=== PATIENT | male | born 1945 | race Caucasian/White ===

== ENCOUNTER 2016-10-22 22:56 | Emergency (ER) | payer OTHER, MEDICARE ==
[~2016-10-22] VITALS: Ht 175.3 cm; Wt 70.3 kg
[~2016-10-22 22:56] MED LIST: ATIVAN0.5 MG PO; AZITHROMYCIN250 MG PO; HYDROCODONE/ACE1 TA1 PO; HYDROCORTISONE2.51 TOP; LIPO FLAVONOID; LISINOPRIL10 MG PO; PAROXETINE10 MG PO; RANITIDINE HYD150 MG PO
[2016-10-22 23:33] VITALS: BP 156/83
--- NOTE | 2016-10-23 00:49 | ED UPPER/LOWER EXTREMITY COMPL ---
History of Present Illness General Chief Complaint: Lower Extremity Problems Stated Complaint: LEFT HIP PAIN TRAVELS ALL THE WAY DOWN Source: patient Exam Limitations: no limitations Vital Signs & Intake/Output Vital Signs & Intake/Output Vital Signs Date Time Temp Pulse Resp B/P Pulse O2 O2 Flow FiO2 Ox Delivery Rate 10/23 0034 Room Air 10/22 2333 97.6 71 18 156/83 98 Room Air ED Intake and Output 10/23 0000 10/22 1200 Intake Total Output Total Balance Patient 155 lb Weight Allergies Coded Allergies: Penicillins (Severe, LIP SWELLING, HIVES 10/23/16) sulfamethoxazole (From Bactrim) (Severe, LIP SWELLING 10/23/16) trimethoprim (From Bactrim) (Severe, LIP SWELLING 10/23/16) venom-honey bee (Intermediate, REDNESS, SWELLING TO SITE 10/23/16) Reconcile Medications HYDROCODONE/ACETAMINOPHEN (Hydrocodon-Acetaminophen 5-325) 1 TAB TAB 0.5 TAB PO PRN PAIN (Reported) Lisinopril 10 MG TABLET 1 TAB PO DAILY BP (Reported) Lorazepam (Ativan) 0.5 MG TAB 1 TAB PO TID ANXIETY (Reported) Methylprednisolone. (Medrol) 4 MG TAB.DS.PK 1 DP PO AD INFLAMMATION 6 on day 1 then reduce by one tablet daily until gone Oxycodone HCl/Acetaminophen (Percocet 5-325 MG Tablet) 5 MG-325 MG TABLET 1 TAB PO Q4-6 PRN PAIN Ranitidine Hydrochloride 150 MG TAB 1 TAB PO BID GERD (Reported) Triage Note: PT TO ED C/O LEFT HIP PAIN THAT SHOOTS DOWN LEG. SAW DR ROA ON SUNDAY, WAS GIVEN CORTISONE SHOT FOR SCIATIA. IS TAKING 1/2 VICODIN WHICH USED TO HELP, BUT NOW THE PAIN IS SHOOTING DOWN THE LEG PT WALKING WITH LIMP Triage Nurses Notes Reviewed? yes Onset: Abrupt Duration: week(s): (1) Timing: multiple episodes today Severity: severe Pain/Injury Location: Left: Leg. Modifying Factors: Worsens With: other (CHANGE IN POSITION). HPI: 71 year old male presents to the ER with low back pain radiaing to the left leg x 1 week. He had a cortisone injection by his doctor but states that it is not helping. Pain worse with changes in positions. No trauma. No difficulty with bowel or bladder habits. Patient denies any pain relief with vicodin. Past History Travel History Traveled to [place] past 21 day No Medical History Any Pertinent Medical History? 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 No Review of Systems Review of Systems Constitutional: Denies: chills, malaise. EENTM: Reports: no symptoms. Respiratory: Denies: cough, short of breath. Cardiovascular: Denies: chest pain. Gastrointestinal/Abdominal: Denies: abdominal pain. Genitourinary: Reports: no symptoms. Musculoskeletal: Reports: back pain, muscle pain, muscle stiffness. Skin: Reports: no symptoms. Neurological/Psychological: Reports: anxiety. Hematologic/Endocrine: Denies: bruising, bleeding. Immunological: Reports: no symptoms. All Other Systems: Reviewed and Negative Physical Exam Physical Exam General Appearance: alert, awake, anxious, mild distress, thin Head: atraumatic Eyes: Bilateral: PERRL, EOMI. Ears, Nose, Throat: normal pharynx, normal ENT inspection, hearing grossly normal Neck: normal inspection, supple Cardiovascular/Respiratory: regular rate/rhythm Peripheral Pulses: 2+ radial (R), 2+ radial (L) Back: normal inspection Leg Left: normal range of motion, normal inspection Leg Right: normal range of motion, normal inspection Hip Left: normal range of motion, pain, positive SLR at 10 degrees no deformity Hip Right: normal range of motion, normal inspection Knee Left: normal range of motion, normal inspection Knee Right: normal range of motion, normal inspection Neurologic/Tendon: normal sensation, normal motor functions, normal tendon functions Skin: intact, normal color, warm/dry Lymphatic: no anterior cervical brendon Progress Differential Diagnosis: dislocation, fracture, sprain, ARTHRITIS Plan of Care: Orders Procedure Date/time Status XRY-LUMBOSACRAL SPINE 4 VIEWS 10/23 56 Active XRY-HIP 2-3 VIEWS, LEFT 10/23 56 Active Current Medications Sig/Tyson Start time Last Medication Dose Stop Time Status Admin Ketorolac 30 MG ONCE ONE 10/23 99 UNVr Tromethamine 10/23 100 (Toradol) Prednisone 60 MG ONCE ONE 10/23 99 UNVr 10/23 100 Diagnostic Imaging: Viewed by Me: Radiology Read. Discussed w/RAD: Radiology Read. Radiology Impression: PATIENT: BOB BATES JR PRESENT AGE: 71 PATIENT ACCOUNT NO: [id number] : 45 LOCATION: ER ORDERING PHYSICIAN: JEFF CESPEDES MD SERVICE DATE: 10/23/16 EXAM TYPE: RAD - XRY-LUMBOSACRAL SPINE 4 VIEWS EXAMINATION: XR LUMBOSACRAL SPINE CLINICAL INFORMATION: Low back pain. COMPARISON: CT scan abdomen and pelvis 10/05/2015 TECHNIQUE: AP. Lateral. Cone-down AP lateral lumbosacral junction view FINDINGS: Lumbar vertebrae of normal height and alignment. No fracture bone destruction. Degenerative lipping at the anterior endplates of lumbar vertebrae. Lumbar disc height narrowing at L4-L5. Degenerative facet joint arthrosis most pronounced at the lower lumbar spine. IMPRESSION: No acute abnormality. Degenerative disc disease of lumbar spine. DICTATED BY: LONDON SINGH MD DATE/TIME DICTATED:204 GREY WASHER:TAMIR.RANDOLPH DATE/TIME TRANSCRIBED:10/23/16204 CONFIDENTIAL, DO NOT COPY WITHOUT APPROPRIATE AUTHORIZATION. <Electronically signed in Other Vendor System> SIGNED BY: LONDON SINGH MD 10/23/16209, PATIENT: BOB BATES JR PRESENT AGE: 71 PATIENT ACCOUNT NO: [id number] : 45 LOCATION: [facility] ORDERING PHYSICIAN: JEFF CESPEDES MD SERVICE DATE: 10/23/16 EXAM TYPE: RAD - XRY-HIP 2-3 VIEWS, LEFT EXAMINATION: XR HIP, LEFT CLINICAL INFORMATION: Left hip pain radiating to the leg. COMPARISON: None TECHNIQUE: Two views of the left hip. FINDINGS: Bones and soft tissues are normal. No fracture. Alignment is anatomic. Hip joint space is maintained. IMPRESSION: Normal left hip. DICTATED BY: LONDON SINGH MD DATE/ TIME DICTATED:10/23/16206 GREY WASHER:RAD.RANDOLPH DATE/TIME TRANSCRIBED: 10/23/16206 CONFIDENTIAL, DO NOT COPY WITHOUT APPROPRIATE AUTHORIZATION. < Electronically signed in Other Vendor System> SIGNED BY: LONDON SINGH MD 211 Departure Departure Time of Disposition: 214 Disposition: HOME OR SELF CARE Condition: Stable Clinical Impression Primary Impression: Sciatica of left side Referrals: ERIN BOWEN,INOCENCIO Finn (PCP/Family) Additional Instructions: Take the Percocet and Medrol Dosepak as directed. Follow-up with her doctor in the office. Return to the ER for any changing or worsening symptoms. Departure Forms: Customer Survey General Discharge Information Prescriptions: Current Visit Scripts Methylprednisolone. (Medrol) 1 DP PO AD #1 DP 6 on day 1 then reduce by one tablet daily until gone Oxycodone HCl/Acetaminophen (Percocet 5-325 MG Tablet) 1 TAB PO Q4-6 PRN PAIN #10 TAB ED Attending Observation Initial Observation Note: I have seen and personally examined BOB BATES JR on 10/24/16 at 2245. I agree with the current emergency department documentation. The disposition (admission or discharge) is uncertain at this time, he needs a period of observation for the following reason(s): The ED Nurse caring for this patient has been personally informed as to what the patient is being observed for.
--- NOTE | 2016-10-23 02:10 | RADIOLOGY REPORT ---
EXAMINATION: XR LUMBOSACRAL SPINE CLINICAL INFORMATION: Low back pain. COMPARISON: CT scan abdomen and pelvis 10/05/2015 TECHNIQUE: AP. Lateral. Cone-down AP lateral lumbosacral junction view FINDINGS: Lumbar vertebrae of normal height and alignment. No fracture bone destruction. Degenerative lipping at the anterior endplates of lumbar vertebrae. Lumbar disc height narrowing at L4-L5. Degenerative facet joint arthrosis most pronounced at the lower lumbar spine. IMPRESSION: No acute abnormality. Degenerative disc disease of lumbar spine.
--- NOTE | 2016-10-23 02:12 | RADIOLOGY REPORT ---
EXAMINATION: XR HIP, LEFT CLINICAL INFORMATION: Left hip pain radiating to the leg. COMPARISON: None TECHNIQUE: Two views of the left hip. FINDINGS: Bones and soft tissues are normal. No fracture. Alignment is anatomic. Hip joint space is maintained. IMPRESSION: Normal left hip.
[2016-10-23] MEDS ORDERED: MEDROL4 M2 PO (02:14)
[2016-10-23] MEDS ORDERED: PERCOCET 5-3251 EACH PO (02:14)
== END 2016-10-23 02:22 ==
LOC: ERH 22:56
DX: M54.32 Sciatica, left side (principal)
CPT/HCPCS: 72110; 73502-LT; 96372; J1885

== ENCOUNTER → 2017-03-23 | Day surgery (SDC) | payer OTHER ==
[~2017-03-23] VITALS: Ht 172.7 cm; Wt 72.6 kg
[~2017-03-23] MED LIST changes: +LISINOPRIL10 M1 PO; +LORAZEPAM0.5 M1 PO; +MEDROL4 M2 PO; +PAIN RELIEVER500 MG PO; +PERCOCET 5-3251 EACH PO; +RANITIDINE HCL150 MG PO
--- NOTE | 2017-03-23 20:17 | Operative Report ---
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 After successful induction of general anesthesia the inguinal and surrounding areas were clipped prepped and draped in the usual sterile fashion. After injection of local anesthetic at the bottom of the umbilicus off the midline to the left, a 1 1/2 cm curved incision was made with a 15 blade, then deepened through Renato's fascia, sweeping off the rectus sheath. A horizontal 1-1/2 cm incision was made between the fibers, elevating these edges with 0 Vicryl stay sutures. Then retracting the muscle laterally, clearing off the posterior rectus sheath, this space is developed down the midline to the pubis sequentially, with an S retractor, a peanut dissector, then the balloon-camera device, inflating it 30-40 pumps while watching how it opens up the space, keeping the epigastrics up. The balloon is then replaced with a 10 mm Bangura trocar, inserted, shortened, and secured with the stay sutures, gas turned on to 12 not 15 mm. Then two 5 mm trochars are inserted in the midline just below the camera, spaced by approximately 3 cm. Using mostly blunt dissection with peanuts to define the anatomy, first Siddharth's ligament is swept off medially, checking the medial spaces, direct and femoral. There was a direct defect. This defect was reduced and then briefly skipping over the area of the iliac fat pad, we developed the iliopubic tract out laterally to the iliac crest. Then we dissected out the spermatic cord which form a triangle with the vas approaching medially and the main vessels approaching laterally, with the apex at the deep ring. There was some preperitoneal fat up inside in front that was dragged down and out. The cord is also from the underlying iliac fat. Once the hernia sac is from the cord structures down to the base of this "triangle," a Parietex sided mesh with the suture, is marked and stuffed down the camera trocar, then unfurled in a systematic fashion, first with the smaller leaflet passing behind the cord structures, until the flap covers the epigastrics, covering the deep ring, then the larger leaflet is released from the suture, double-covering the smaller one, but also extends laterally out to the iliac crest, medially over Siddharth's ligament, and superiorly towards the camera. There is a third part of the mesh, that covers the iliac fat pad like a skirt. The mesh was adjusted back and forth so that the keyhole is centered around the cord, lays flat and the edges are not curling. A trial run of letting the gas escape a little bit to see how the mesh would lay as the peritoneum comes back down is done, then when we' re satisfied, we let rest of the gas escape, pulling out the instruments and trochars. The fascia is closed with a [id number] 0 Vicryl suture, tying the stay sutures on top. Then we closed the 3 skin incisions with interrupted 4-0 Monocryl, 3 for the umbilical, one each for the smaller ones, followed by Mastisol, Steri-Strips and Band-Aids. Overall estimated blood loss was minimal, lap and sponge counts were correct, wound expectancy was clean, IV fluids crystalloid, complications none, patient tolerated the procedure well, did not significantly landry during extubation and was returned to the recovery room in satisfactory condition.
== END ==
LOC: STS 04:20
DX: K40.90 Unilateral inguinal hernia, without obstruction or gangrene, not specified as recurrent (principal); I10 Essential (primary) hypertension; K21.9 Gastro-esophageal reflux disease without esophagitis; Z87.891 Personal history of nicotine dependence
CPT/HCPCS: 36415; C1781; J1100; J1200; J2250; J2405

== ENCOUNTER 2017-11-30 07:17 | Emergency (ER) | payer OTHER ==
[~2017-11-30] VITALS: Ht 172.7 cm; Wt 68.0 kg
[~2017-11-30 07:17] MED LIST changes: +DELTASONE20 MG PO
[2017-11-30 07:23] VITALS: BP 150/76
--- NOTE | 2017-11-30 07:41 | ED HAND/WRIST INJURY COMPLAINT ---
History of Present Illness General Chief Complaint: General Adult Stated Complaint: CUT ON HAND Source: patient, old records Exam Limitations: no limitations Vital Signs & Intake/Output Vital Signs & Intake/Output Vital Signs Date Time Temp Pulse Resp B/P B/P Pulse O2 O2 Flow FiO2 Mean Ox Delivery Rate 11/30 0723 97.5 71 15 150/76 96 Room Air Room Air Allergies Coded Allergies: Penicillins (Severe, LIP SWELLING, HIVES 11/30/17) sulfamethoxazole (From Bactrim) (Severe, LIP SWELLING 11/30/17) trimethoprim (From Bactrim) (Severe, LIP SWELLING 11/30/17) venom-honey bee (Intermediate, REDNESS, SWELLING TO SITE 11/30/17) Reconcile Medications Acetaminophen (Pain Reliever) 500 MG CAPSULE 2 CAP PO PRN PAIN (Reported) Lisinopril 10 MG TABLET 1 TAB PO DAILY BP (Reported) Lorazepam 0.5 MG TABLET 1 TAB PO BIDP PRN ANXIETY (Reported) Prednisone (Deltasone) 20 MG TABLET 2 TAB PO DAILY RASH Ranitidine (Ranitidine HCl) 150 MG TABLET 1 TAB PO BID GI (Reported) Triage Note: PT TO ED FOR C/C OF ABRASION/?BITE TO L THIRD KNUCKLE AREA. NO ACTIVE BLEEDING. PT TOOK OUT THE TRASH AND ISN'T SURE IF HE GOT BIT OR GOT CUT BY GLASS. ABRASION CLEANED, BACITRACIN AND BANDAID APPLIED. Triage Nurses Notes Reviewed? yes Occurred: just prior to arrival Duration: minute(s):, better, continues in ED Timing: recent history Injury Environment: gas station Severity: mild Pain/Injury Location: Left: Hand. 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 He denies fever chills nausea vomiting diarrhea abdominal pain headache chest pain shortness of breath dysuria rash. He is right hand dominant. Past History Travel History Traveled to [place] past 21 day No Medical History Any Pertinent Medical History? 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 No Review of Systems Review of Systems Constitutional: Reports: no symptoms. EENTM: Reports: no symptoms. Respiratory: Reports: no symptoms. Cardiovascular: Reports: no symptoms. GI: Reports: no symptoms. Genitourinary: Reports: no symptoms. Musculoskeletal: Reports: no symptoms. Skin: Reports: see HPI. Neurological/Psychological: Reports: no symptoms. Hematologic/Endocrine: Reports: no symptoms. Immunologic/Allergic: Reports: no symptoms. All Other Systems: Reviewed and Negative Physical Exam Physical Exam General Appearance: well developed/nourished, alert, awake, anxious, comfortable Head: atraumatic, normal appearance Eyes: Bilateral: normal appearance, PERRL, EOMI. Ears, Nose, Throat: normal pharynx, normal ENT inspection, hearing grossly normal Neck: normal inspection, supple, full range of motion, no midline tenderness Cardiovascular/Respiratory: normal breath sounds, normal peripheral pulses, regular rate/rhythm, no respiratory distress Back: normal inspection Shoulder Left: normal range of motion, normal inspection Shoulder Right: normal range of motion, normal inspection Elbow Left: normal range of motion, normal inspection Elbow Right: normal range of motion, normal inspection Forearm Left: normal range of motion, normal inspection Forearm Right: normal range of motion, normal inspection Wrist Left: normal range of motion, normal inspection Wrist Right: normal range of motion, normal inspection Hand Left: normal range of motion, abrasions Hand Right: normal inspection, normal range of motion Reflexes: 2+: bicep (R), bicep (L). Neurologic/Tendon: normal sensation, normal motor functions, normal tendon functions Skin: intact, normal color, warm/dry Lymphatic: no anterior cervical brendon Progress Differential Diagnosis: cellulitis, contusion Plan of Care: wound care Departure Departure Time of Disposition: 739 Disposition: HOME OR SELF CARE Condition: Stable Clinical Impression Primary Impression: Hand abrasion, non-infected Referrals: Angel BOWEN,Norbert Finn (PCP/Family) Departure Forms: Customer Survey General Discharge Information
== END 2017-11-30 07:41 ==
LOC: ERH 07:17
DX: S60.512A Abrasion of left hand, initial encounter (principal); W45.8XXA Other foreign body or object entering through skin, initial encounter; Y92.29 Other specified public building as the place of occurrence of the external cause; Y93.9 Activity, unspecified
CPT/HCPCS: 99282

== ENCOUNTER 2018-01-16 11:10 | Inpatient (IN) | payer OTHER ==
[~2018-01-16] VITALS: Ht 172.7 cm; Wt 67.6 kg
--- NOTE | 2018-01-16 13:00 | RADIOLOGY REPORT ---
EXAMINATION: XR CHEST CLINICAL INFORMATION: Dyspnea on exertion. Fever. Rule out pneumonia. COMPARISON: Chest radiograph 12/06/2017. TECHNIQUE: 2 views of the chest were obtained. FINDINGS: The lungs are clear without consolidation, edema, or effusion. No pneumothorax. The cardiomediastinal silhouette appears normal. Allowing for mild degenerative changes in the thoracic spine the osseous structures are intact. IMPRESSION: No active disease in the chest.
--- NOTE | 2018-01-16 15:30 | ED INFLUENZA/URI COMPLAINT ---
History of Present Illness General Chief Complaint: Dyspnea (COPD, CHF, Other) Stated Complaint: SOB Source: patient, old records Exam Limitations: no limitations Vital Signs & Intake/Output Vital Signs & Intake/Output ED Intake and Output 01/19 0000 01/18 1200 Intake Total 940 Output Total Balance 940 Intake, IV 600 Intake, Oral 340 Number 1 Bowel Movements Patient 67.585 kg Weight Allergies Coded Allergies: Penicillins (Severe, LIP SWELLING, HIVES 11/30/17) sulfamethoxazole (From Bactrim) (Severe, LIP SWELLING 11/30/17) trimethoprim (From Bactrim) (Severe, LIP SWELLING 11/30/17) venom-honey bee (Intermediate, REDNESS, SWELLING TO SITE 11/30/17) Reconcile Medications Acetaminophen (Pain Reliever) 500 MG CAPSULE 2 CAP PO PRN PAIN (Reported) Aspirin (Aspirin*) 81 MG TAB.CHEW 1 TAB PO DAILY heart (Reported) Atorvastatin Calcium 10 MG TABLET 1 TAB PO DAILY hld (Reported) Hydrocodone/Acetaminophen (Hydrocodon-Acetaminophen 5-325) 5 MG-325 MG TABLET 1 TAB PO DAILY NEEDED PRN pain (Reported) Lisinopril 10 MG TABLET 1 TAB PO DAILY BP (Reported) Lorazepam 0.5 MG TABLET 1 TAB PO BIDP PRN ANXIETY (Reported) Ranitidine (Ranitidine HCl) 150 MG TABLET 1 TAB PO BID GI (Reported) Triage Note: PT TO ER C/C 1 DAY HX OF RIGORS, CHILLS, AND TARANGO. PT STATES T-MAX LAST NIGHT WAS 101.5, TOOK TYLENOL PT ARRIVES AOX3, DENIES CHEST PAIN OR SOB OR COUGH. TYMPANIC TEMP 101.4. MED WITH 975 MG TYLENOL IN TRIAGE. Triage Nurses Notes Reviewed? yes HPI: 72M PMH HTN presents with fever, chills, and abdominal discomfort. He had an episode of rigors last night that lasted several hours. This morning he had rigors again, along with abdominal discomfort and cough. He feels ill, has malaise, and generalized weakness. He denies stiff neck, headache, sore throat, productive cough, SOB, chest pain, diarrhea, dysuria, constipation. Past History Travel History Traveled to [place] past 21 day No Medical History Any Pertinent Medical History? 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 No Review of Systems Review of Systems Constitutional: Reports: no symptoms. EENTM: Reports: no symptoms. Respiratory: Reports: no symptoms. Cardiovascular: Reports: no symptoms. GI: Reports: no symptoms. Genitourinary: Reports: no symptoms. Musculoskeletal: Reports: no symptoms. Skin: Reports: no symptoms. Neurological/Psychological: Reports: no symptoms. Hematologic/Endocrine: Reports: no symptoms. Immunologic/Allergic: Reports: no symptoms. All Other Systems: Reviewed and Negative Physical Exam Physical Exam General Appearance: well developed/nourished, no apparent distress Head: atraumatic, normal appearance Eyes: Bilateral: normal appearance. Ears, Nose, Throat: moist mucous membrane, hearing grossly normal Neck: normal inspection, full range of motion Respiratory: normal breath sounds, no respiratory distress Cardiovascular: regular rate/rhythm Gastrointestinal: soft, non-tender Back: normal inspection, normal range of motion Extremities: normal inspection Neurologic/Psych: awake, alert, oriented x 3, normal mood/affect Skin: intact, normal color, warm/dry Core Measures Sepsis Present: No Sepsis Focused Exam Completed? No Progress Differential Diagnosis: influenza, meningitis, neutropenia, otitis, pneumonia, pharyngitis, sinusitis Plan of Care: Orders Procedure Date/time Status Regular Diet 01/17 B Active ED Holding Orders 01/17 1920 Active Admit to inpatient 01/17 1920 Active Vital Signs 01/17 1920 Active Code Status 01/17 1920 Active BLOOD CULTURE 01/16 1724 Active URINALYSIS 01/16 153 Complete COMPREHENSIVE METABOLIC PANEL 01/16 153 Complete CBC WITHOUT DIFFERENTIAL 01/16 153 Complete EKG 01/16 153 Active Laboratory Tests 01/16/18 1737: Urine Color YEL, Urine Clarity HAZY H, Urine pH 7.5, Ur Specific [place] 1.010, Urine Protein NEG, Urine Ketones NEG, Urine Nitrite NEG, Urine Bilirubin NEG, Urine Urobilinogen 0.2, Ur Leukocyte Esterase NEG, Ur Microscopic SEDIMENT EXAMINED, Micro UA Comment NEGATIVE MICROSCOPIC, Urine Hemoglobin SMALL H, Urine Glucose NEG 01/16/18 1545: Anion Gap 10, Estimated GFR > 60, BUN/Creatinine Ratio 15.7, Glucose 114 H, Calcium 8.4, Total Bilirubin 0.8, AST 45, ALT 50, Alkaline Phosphatase 49, Total Protein 6.1 L, Albumin 3.5, Globulin 2.6, Albumin/Globulin Ratio 1.3, CBC w Diff NO MAN DIFF REQ, RBC 4.32 L, MCV 92.2, MCH 31.0, MCHC 33.6, RDW 14.2, MPV 7.6, Gran % 92.1 H, Lymphocytes % 2.6 L, Monocytes % 5.2, Eosinophils % 0, Basophils % 0.1, Absolute Granulocytes 12.1 H, Absolute Lymphocytes 0.3 L, Absolute Monocytes 0.7 H, Absolute Eosinophils 0, Absolute Basophils 0 Microbiology 01/16 174 BLOOD: Blood Culture - RECD 01/17 1740 BLOOD: Blood Culture - RECD Diagnostic Imaging: Viewed by Me: Radiology Read, CT Scan. Discussed w/RAD: Radiology Read, CT Scan. Radiology Impression: PATIENT: BOB BATES PRESENT AGE: 72 PATIENT ACCOUNT NO: [id number] : 45 LOCATION: [facility] ORDERING PHYSICIAN: Marva Menjivar MD SERVICE DATE: 01/16/18 EXAM TYPE: CAT - CT ABD & PELVIS W/O IV CONTRAS EXAMINATION: CT ABDOMEN AND PELVIS WITHOUT CONTRAST CLINICAL INFORMATION: Fever. Abdominal pain. COMPARISON: CT abdomen pelvis 08/07/2017. CT enterography 11/24/2017. TECHNIQUE: Multidetector volumetric imaging was performed from the superior aspect of the liver through the pubic symphysis. Sagittal and coronal reformatted images were obtained on the technologist's workstation. DLP: 274.69 mGy-cm FINDINGS: LUNG BASES: There is marked emphysematous changes of the lung bases. LIVER, GALLBLADDER, AND BILIARY TREE: The liver is normal in size, shape, and attenuation. No focal hepatic lesion or biliary ductal dilatation is present. The gallbladder is unremarkable with no evidence of radiopaque gallstones, gallbladder wall thickening, or obvious pericholecystic inflammatory changes. PANCREAS: 1 cm cyst seen at the tail the pancreas on the prior CT study 11/24/2017 is not apparent on this noncontrast exam. There is no pancreatic mass or inflammation. There are no pancreatic calcifications. No pancreatic duct dilatation. SPLEEN: Unremarkable. ADRENAL GLANDS: Unremarkable. KIDNEYS AND URETERS: The kidneys are normal in size, shape, and attenuation. No hydronephrosis, hydroureter, or calculi seen. No perinephric stranding. Stable small cortical cyst lower pole left kidney. BLADDER: Unremarkable. GASTROINTESTINAL TRACT: There is marked diverticulosis of the colon. Diverticulosis is severe at the sigmoid colon. Diverticula are present throughout the colon. There is mild generalized thickening of the bowel wall of the sigmoid colon but this is likely chronic from the diverticulosis. There is no edema of the pericolonic fat. There is no bowel obstruction. Moderate volume of stool throughout the colon. The appendix is normal. The small bowel loops are normal. ABDOMINAL WALL: No significant hernia is appreciated. LYMPH NODES: Normal. VASCULAR: Scattered vascular wall calcification of distal aorta and iliac arteries. PELVIC VISCERA: Small coarse calcification the prostate. Prostate measures 3.7 cm transverse. OSSEOUS STRUCTURES: Vacuum disc phenomenon with endplate spurring L4-L5. There is also endplate spurs throughout the lower thoracic and lumbar spine. There is facet joint arthrosis at the lower lumbar spine. IMPRESSION: Marked diverticulosis of the sigmoid and left colon with diverticula throughout the colon. There is mild bowel wall thickening of the sigmoid colon but this is chronic similar to prior studies related to the marked diverticulosis. No pericolonic edema to suggest an acute abnormality. DICTATED BY: Raphael Francois MD DATE/TIME DICTATED:01/16/181829 HOST COORDINATOR:LEIDY DATE/TIME TRANSCRIBED:01/16/181829 CONFIDENTIAL, DO NOT COPY WITHOUT APPROPRIATE AUTHORIZATION. <Electronically signed in Other Vendor System> SIGNED BY: Raphael Francois MD 01/16/18 3014 CXR Impression: PATIENT: BOB BATES PRESENT AGE: 72 PATIENT ACCOUNT NO: [id number] : 45 LOCATION: [facility] ORDERING PHYSICIAN: Thuan Smallwood DO (TBS) SERVICE DATE: 01/16/18-0449 EXAM TYPE: RAD - XRY- CHEST XRAY, TWO VIEWS EXAMINATION: XR CHEST CLINICAL INFORMATION: Dyspnea on exertion. Fever. Rule out pneumonia. COMPARISON: Chest radiograph 12/06/2017. TECHNIQUE: 2 views of the chest were obtained. FINDINGS: The lungs are clear without consolidation, edema, or effusion. No pneumothorax. The cardiomediastinal silhouette appears normal. Allowing for mild degenerative changes in the thoracic spine the osseous structures are intact. IMPRESSION: No active disease in the chest. DICTATED BY: Dariusz Jorge MD DATE/TIME DICTATED: 01/16/181252 HOST COORDINATOR:LEIDY DATE/TIME TRANSCRIBED:01/16/181252 CONFIDENTIAL, DO NOT COPY WITHOUT APPROPRIATE AUTHORIZATION. <Electronically signed in Other Vendor System> SIGNED BY: Dariusz Jorge MD 01/16/18 1300 Initial ED EKG: normal sinus rhythm, no ST T wave changes Departure Departure Disposition: STILL A PATIENT Condition: Stable Clinical Impression Primary Impression: SIRS (systemic inflammatory response syndrome) Secondary Impressions: Rigors Referrals: Angel BOWEN,Norbert Finn (PCP/Family) Departure Forms: Customer Survey General Discharge Information Admission Note Spoke With: Arabella Slater MD Documentation of Exam: Documentation of any treatments & extenuating circumstances including Concerns Regarding Discharge (functional status, medication knowledge or non-compliance, living conditions, etc.) that warrant an admission rather than observation: fever 101.8, multiple episodes of rigors, WBC 13 with unknown etiology in a 72 year old man who lives alone, will admit to medicine for IV hydration, blood cultures, further workup of symptoms.
[2018-01-16 15:56] LABS: ABSOLUTE BASOPHIL COUNT 0 /CUMM (0.0-0.2); ABSOLUTE EOSINOPHIL COUNT 0 /CUMM (0.0-0.7); ABSOLUTE GRANULOCYTE CT 12.1 /CUMM (1.4-6.5); ABSOLUTE LYMPH COUNT 0.3 /CUMM (1.2-3.4); ABSOLUTE MONOCYTE COUNT 0.7 /CUMM (0.10-0.60); BASOPHIL % 0.1 % (0.0-2.0); EOSINOPHIL % 0 % (0-5); HEMATOCRIT 39.8 % (42-52); MEAN CORPUSCULAR HGB CONC 33.6 G/DL (33.0-37.0); MEAN CORPUSCULAR VOLUME 92.2 FL (80.0-94.0); MEAN PLATELET VOLUME 7.6 FL (7.4-10.4); PLATELET COUNT 184 /CUMM (130-400); RBC DISTRIBUTION WIDTH 14.2 % (11.5-14.5); RED BLOOD CELL CT 4.32 /CUMM (4.70-6.10); WHITE BLOOD CELL COUNT 13.2 /CUMM (4.8-10.8)
[2018-01-16 16:14] LABS: GRANULOCYTE % 92.1 % (42.2-75.2)
--- NOTE | 2018-01-16 18:44 | CT SCAN REPORT ---
EXAMINATION: CT ABDOMEN AND PELVIS WITHOUT CONTRAST CLINICAL INFORMATION: Fever. Abdominal pain. COMPARISON: CT abdomen pelvis 08/07/2017. CT enterography 11/24/2017. TECHNIQUE: Multidetector volumetric imaging was performed from the superior aspect of the liver through the pubic symphysis. Sagittal and coronal reformatted images were obtained on the technologist's workstation. DLP: 274.69 mGy-cm FINDINGS: LUNG BASES: There is marked emphysematous changes of the lung bases. LIVER, GALLBLADDER, AND BILIARY TREE: The liver is normal in size, shape, and attenuation. No focal hepatic lesion or biliary ductal dilatation is present. The gallbladder is unremarkable with no evidence of radiopaque gallstones, gallbladder wall thickening, or obvious pericholecystic inflammatory changes. PANCREAS: 1 cm cyst seen at the tail the pancreas on the prior CT study 11/24/2017 is not apparent on this noncontrast exam. There is no pancreatic mass or inflammation. There are no pancreatic calcifications. No pancreatic duct dilatation. SPLEEN: Unremarkable. ADRENAL GLANDS: Unremarkable. KIDNEYS AND URETERS: The kidneys are normal in size, shape, and attenuation. No hydronephrosis, hydroureter, or calculi seen. No perinephric stranding. Stable small cortical cyst lower pole left kidney. BLADDER: Unremarkable. GASTROINTESTINAL TRACT: There is marked diverticulosis of the colon. Diverticulosis is severe at the sigmoid colon. Diverticula are present throughout the colon. There is mild generalized thickening of the bowel wall of the sigmoid colon but this is likely chronic from the diverticulosis. There is no edema of the pericolonic fat. There is no bowel obstruction. Moderate volume of stool throughout the colon. The appendix is normal. The small bowel loops are normal. ABDOMINAL WALL: No significant hernia is appreciated. LYMPH NODES: Normal. VASCULAR: Scattered vascular wall calcification of distal aorta and iliac arteries. PELVIC VISCERA: Small coarse calcification the prostate. Prostate measures 3.7 cm transverse. OSSEOUS STRUCTURES: Vacuum disc phenomenon with endplate spurring L4-L5. There is also endplate spurs throughout the lower thoracic and lumbar spine. There is facet joint arthrosis at the lower lumbar spine. IMPRESSION: Marked diverticulosis of the sigmoid and left colon with diverticula throughout the colon. There is mild bowel wall thickening of the sigmoid colon but this is chronic similar to prior studies related to the marked diverticulosis. No pericolonic edema to suggest an acute abnormality.
--- NOTE | 2018-01-16 20:12 | History & Physical ---
Payton Turpin MD,[facility] 01/16/182010: General Information and HPI MD Statement: I have seen and personally examined TITO BATES and documented this H&P. The patient is a 72 year old M who presented with a patient stated chief complaint of [shortness of breathing]. Source of Information: patient, old records Exam Limitations: no limitations History of Present Illness: Patient is 72 Y M with PMH of HTN, GERD, diverticulitis, chronic back pain, osteoarthritis, anxiety presented to the ED with fever, chills and abdominal discomfort. Patient reported that today he had a fever of 102, he also had shortness of breathing with exertion, and he was shaking. He called EMS and was transferred to hospital. He also noticed a small amount of blood in his stool 2 days ago, however Hemoccult today was negative. He also reported mild abdominal soreness, with pain in LLQ with palpation. He had history of diverticulitis (several years ago) and the most recent episode was 4-5 months ago when he was administered Flagyl and ciprofloxacin by PCP (this was associated by 12 pound weight loss due to poor by mouth intake. He denied any recent infection, chest pain, change in bowel moment, change in urine color, no headache, no infection in oral cavity. He had an episode of vision change one months ago which lasted for 15 seconds, he was referred to dietary aide teacher by his PCP without significant finding and was planned to do an echocardiogram today to rule out any etiology of stroke. He follows Dr Cespedes , last visit was one months ago his last colonoscopy was 6 years ago. He also follows Dr. Gracia for osteoarthritis. Patient also visited ED in December 2017 for high-temperature and was discharged on Tylenol after negative workup. In his baseline he is independent of ADL was and lives with . He denies drinking alcohol, he stopped smoking 13 years ago. Allergies/Medications Allergies: Coded Allergies: Penicillins (Severe, LIP SWELLING, HIVES 11/30/17) sulfamethoxazole (From Bactrim) (Severe, LIP SWELLING 11/30/17) trimethoprim (From Bactrim) (Severe, LIP SWELLING 11/30/17) venom-honey bee (Intermediate, REDNESS, SWELLING TO SITE 11/30/17) Home Med list Acetaminophen (Pain Reliever) 500 MG CAPSULE 2 CAP PO PRN PAIN (Reported) Aspirin (Aspirin*) 81 MG TAB.CHEW 1 TAB PO DAILY heart (Reported) Atorvastatin Calcium 10 MG TABLET 1 TAB PO DAILY hld (Reported) Hydrocodone/Acetaminophen (Hydrocodon-Acetaminophen 5-325) 5 MG-325 MG TABLET 1 TAB PO DAILY NEEDED PRN pain (Reported) Lisinopril 10 MG TABLET 1 TAB PO DAILY BP (Reported) Lorazepam 0.5 MG TABLET 1 TAB PO BIDP PRN ANXIETY (Reported) Ranitidine (Ranitidine HCl) 150 MG TABLET 1 TAB PO BID GI (Reported) Past History Travel History Traveled to [place] past 21 day No Medical History Neurological: NONE EENT: TINNITUS Cardiovascular: hypertension Respiratory: NONE Gastrointestinal: GERD, inguinal hernia DIVERTICULITIS Hepatic: NONE Renal: NONE Musculoskeletal: chronic back pain, osteoarthritis Psychiatric: anxiety Endocrine: NONE Blood Disorders: NONE Cancer(s): NONE COLOR SHOP HELPER/Reproductive: NONE History of CDIFF: No Tetanus Vaccine: 05/25/12 Surgical History Surgical History: N Review of Systems Review of Systems Constitutional: Reports: see HPI. Exam & Diagnostic Data Last 24 Hrs of Vital Signs/I&O Vital Signs Date Time Temp Pulse Resp B/P B/P Pulse O2 O2 Flow FiO2 Mean Ox Delivery Rate 01/16 1723 Room Air 01/16 1723 98.5 69 16 156/73 99 Room Air 01/16 1404 98.9 74 20 122/61 96 Room Air 01/16 1326 101.4 01/16 1155 101.4 109 18 109/61 94 Room Air Intake & Output 01/16 1600 01/16 0800 01/16 0000 Intake Total Output Total Balance Patient 150 lb Weight Weight Reported by Patient Measurement Method Physical Exam General Appearance Alert, Oriented X3, Cooperative, No Acute Distress Skin No Significant Lesion, red pauplar lesion in the back Skin Temp/Moisture Exam: Warm/Dry Sepsis Skin Exam (color): Normal for Ethnicity HEENT Atraumatic, PERRLA, EOMI Cardiovascular Normal S1, Normal S2 Lungs Clear to Auscultation, Normal Air Movement Abdomen Soft, LLQ tenderness with deep palpitation, , Pelvic exam normal Neurological Normal Speech, Strength at 5/5 X4 Ext Extremities No Edema, no decreased motion of back, no tenderness of sacroliac Last 24 Hrs of Labs/Zaheer: Laboratory Tests 01/16/18 1737: Urine Opiates Screen < 100, Methadone Screen < 40, Barbiturate Screen < 60, Ur Phencyclidine Scrn < 6.00, Amphetamines Screen < 100, U Benzodiazepines Scrn < 85, Urine Cocaine Screen < 50, Urine Cannabis Screen < 5.00, Urine Color YEL, Urine Clarity HAZY H, Urine pH 7.5, Ur Specific [place] 1.010, Urine Protein NEG, Urine Ketones NEG, Urine Nitrite NEG, Urine Bilirubin NEG, Urine Urobilinogen 0.2, Ur Leukocyte Esterase NEG, Ur Microscopic SEDIMENT EXAMINED, Micro UA Comment NEGATIVE MICROSCOPIC, Urine Hemoglobin SMALL H, Urine Glucose NEG 01/16/18 1545: Anion Gap 10, Estimated GFR > 60, BUN/Creatinine Ratio 15.7, Glucose 114 H, Calcium 8.4, Total Bilirubin 0.8, AST 45, ALT 50, Alkaline Phosphatase 49, Creatine Kinase 218 H, Total Protein 6.1 L, Albumin 3.5, Globulin 2.6, Albumin /Globulin Ratio 1.3, CBC w Diff NO MAN DIFF REQ, RBC 4.32 L, MCV 92.2, MCH 31.0 , MCHC 33.6, RDW 14.2, MPV 7.6, Gran % 92.1 H, Lymphocytes % 2.6 L, Monocytes % 5.2, Eosinophils % 0, Basophils % 0.1, Absolute Granulocytes 12.1 H, Absolute Lymphocytes 0.3 L, Absolute Monocytes 0.7 H, Absolute Eosinophils 0, Absolute Basophils 0 Microbiology 01/16 231 URINE ROUT: Urine Culture - ORD 01/16 1745 BLOOD: Blood Culture - RECD 01/17 1740 BLOOD: Blood Culture - RECD Assessment/Plan Assessment: Patient is 72 Y M presented with fever, chills and abdominal discomfort. PMH of HTN, GERD, diverticulitis, chronic back pain, osteoarthritis, anxiety VS, Ph Ex at admission: T101.4, BP 109/61 (later improved to 15 6/73), RI 109, RR 18 Labs at admission: WBC 13.2, no bands, Hgb 13.4, sodium 136 UA: Insignificant Imagings at admission: Chest x-ray: No active disease in the chest Abdomen pelvic CT: Marked diverticulosis of the sigmoid and left colon with diverticula throughout the colon. There is mild bowel wall thickening of the sigmoid colon but this is chronic similar to prior studies related to the marked diverticulosis. No pericolonic edema to suggest an acute abnormality. Patient was admitted to floor for management of following conditions: Fever SIRS positive Abdominal pain LLQ Chronic medical conditions - admit patient to GM floor - vital sign - IV Fluids - Curiel- Cultures - Ceftriaxon and flagyl - ESR CRP - Continue home medications FC Clear liq diet for now DVT ppx: ALPS and Lovenox As Ranked By This Provider Problem List: 1. Fever Core Measures/Misc (05/20) Acute Coronary Syndrome ACS Diagnosis: No Congestive Heart Failure Congestive Heart Failure Diagnosis No Cerebrovascular Accident CVA/TIA Diagnosis: No VTE (View Protocol) VTE Risk Factors Age>40 No Mechanical VTE Prophylaxis d/t N/A MechProphylax Ordered No VTE Pharm Prophylaxis d/t NA PharmProphylax ordered Sepsis (View protocol) Sepsis Present: No Bryon BOWEN, [facility] 01/17/18 0525: Attending MD Review Statement Attending Statement Attending MD Statement: examined this patient, discuss w/resident/PA/PLANS EXAMINER, agreed w/resident/PA/PLANS EXAMINER, reviewed images, amended to note Attending Assessment/Plan: 72 yo M with h/o HTN, OA, severe diverticulosis, rosacea, is here for evaluation of sudden onset chills and rigors. He was noted to have a temp of 101.8 in the ER. Patient reports having some difficulty breathing without cough/phlegm. He also reports pain in the left lower quadrant and intermittent constipation, although he had 3 bowel movements today mostly semisoft and watery stool. He denies nausea or vomiting. Patient was seen in the ER (December 2017) for fever of unclear etiology and was discharged to follow up with PCP. Patient was last treated for diverticulitis with cipro/flagyl by his PCP in Aug 2017. Of note, he is scheduled for an echocardiogram with Dr. Cespedes, for evaluation of possible TIA in the last month. Vitals: Tmax 101.4, HR 90-100, BP 152/80, sats 96% RA. Exam as above. Labs: WBC 13.2, Na 136, glucose 114, LFTs normal, UA negative, urine tox negative. CXR: no acute disease. CT abd/pelvis without contrast: marked diverticulosis of sigmoid and left colon with diverticula througout the colon. There is mild bowel wall thickening of sigmoid colon but this is chronic. No pericolonic edema. EKG: sinus rhythm, PAC's, Qtc 399. Assessment and plan: 1. Systemic inflammatory response syndrome 2. Possible acute sigmoid diverticulitis 3. No evidence of pneumonia, UTI or SSTI 4. Essential hypertension 5. Severe OA with back pain - Admit to General medicine - Panculture - Check CRP, ESR and lactic acid - IV ceftriaxone and flagyl - Consider de-escalating antibiotics if fever defervesces and leukocytosis improves in AM - Outpatient GI follow up - Gentle hydration - Advance diet as tolerated - Resume all home meds - Please obtain records from PCP's office and consider inpatient echo if need be DVT ppx Lovenox. Full code. Sandra BOWEN,[facility] 01/17/18 0543: Resident Review Statement Resident Statement: examined this patient, discussed with technical support internship, agreed with technical support internship, discussed with family, reviewed EMR data (avail), discussed with nursing Other Findings: Tito is 72-year-old male with past medical history significant for hypertension, hyperlipidemia, diverticulosis, osteoarthritis, prostatitis who presented to ED with chief complaint of fever. Patient was evaluated on December 06 for fever of 102.5 and dyspnea without any lab or imaging evidence of infection, patient was discharged from the ED and reported resolving symptoms. Yesterday patient reported fever of 101.5 for which he took 2 tabs of aspirin, fever resolved and patient had an normal regular daily activity, in the afternoon he had recurrence of the fever measured 102, chills, shortness of breath, palpitation and called EMS. Patient denied any history of sick contact, denied abdominal pain, nausea, vomiting, constipation or diarrhea, blood in stool, dark stool. He reported episode of acute mild diverticulitis 3 weeks ago and was treated with Flagyl and ciprofloxacin x 7days by his PCP, since then patient reported 12 pounds weight loss because of loss appetite. Patient reported "little discomfort" at the left lower quadrant but denied any severe pain. Yesterday he had 3 bowel movements 2 of them loose stool. Patient follow-up with Dr. Cespedes, last visit was 3 weeks ago after the episode of acute diverticulitis and patient was told to continue on Metamucil with plan for colonoscopy in 4 years (his last colonoscopy 6 years ago and due in 10 years). Patient had 2 episodes of diverticulitis 2002 and 3 months ago both of them were documented as a very mild diverticulitis with minimal evidence on imaging studies. Patient also follow-up with Dr. Gracia for osteoarthritis and Dr. Stoddard for multiple acute and subacute prostatitis. Patient denied any urinary symptoms, dysuria, frequency, hematuria, testicular pain, pelvic pain, penile discharge. Sexual history is not significant (occassional oral sex). Denied any bug/insect bites. No dental caries or mouth abscess. Has an ED visit on November 30 for hand abrasion to the left third knuckle area while throwing garbage, had concern of rate bite however no lab concerns of infection at that time, no significant lesion. Of note patient reported referral to do echocardiogram for no clear reason. Problem list #SIRS #Possible acute sigmoid diverticulitis #Hypertension, hyperlipidemia #History of prostatitis however physical exam negative for pelvic pain Plan Admit to general medical floor Vitals every shift Curiel culture Acetaminophen for fever Ceftriaxone and Flagyl Guaiac stool Obtain ESR, CRP Repeat CBCs, BEP Courtesy call to Dr. Cespedes Full diet for now and advance as tolerated Resume home medication DVT prophylaxis Lovenox Diet full liquid Code full
[2018-01-16] MEDS ORDERED: ATORVASTATIN CA10 M1 PO (21:43)
[2018-01-16] MEDS ORDERED: ASPIRIN81 M4 PO (21:43)
[2018-01-16] MEDS ORDERED: HYDROCODON-ACE1 EAC2 PO (21:44)
[2018-01-16 22:43] VITALS: BP 152/80
--- NOTE | 2018-01-17 03:58 | Admission Certification ---
Admission Certification Certification Statement - As attending physician, I certify that at the time of - admission, based on clinical presentation, severity of - symptoms, need for further diagnostic testing and - therapeutic interventions, and risk of adverse outcomes - without in-hospital treatment, in my clinical assessment, - this patient requires an acute hospital stay for a minimum - of two nights or longer. I have also considered psychsocial - factors such as support system, advanced age, financial - issues, cognitive issues, and failed out-patient treatments, - past re-admission history, safety of patient, and lack of - compliance as applicable. Specific rationale supporting this admission is: SIRS, sigmoid diverticulitis
[2018-01-17 06:26] VITALS: BP 136/78
--- NOTE | 2018-01-17 07:50 | PN- Housestaff ---
Subjective Follow-up For: Fever with abdominal pain Subjective: Patient seen and examined at bedside. No overnight events. Patient is anxious to advance his diet. He denies fever, chills, cough, shortness of breath nausea , vomiting, abdominal pain. He hasn't had any bowel movement since he came in. He gives 1 history of loose bowel movement 2 days ago with no blood. Review of Systems Constitutional: Reports: no symptoms, see HPI. Objective Last 24 Hrs of Vital Signs/I&O Vital Signs Date Time Temp Pulse Resp B/P B/P Pulse O2 O2 Flow FiO2 Mean Ox Delivery Rate 01/17 0844 91 132/80 01/17 0626 97.5 62 20 136/78 98 Room Air 01/16 2243 98.6 72 20 152/80 96 Room Air 01/16 2049 98.2 66 16 118/62 97 Room Air 01/16 1723 Room Air 01/16 1723 98.5 69 16 156/73 99 Room Air 01/16 1404 98.9 74 20 122/61 96 Room Air 01/16 1326 101.4 Intake & Output 01/17 1600 01/17 0800 01/17 0000 Intake Total 640 300 Output Total 400 1 Balance 240 299 Intake, IV 400 Intake, Oral 240 300 Output, Urine 400 1 Patient 148 lb 150 lb Weight Weight Reported by Patient Measurement Method Physical Exam General Appearance: Alert, Oriented X3, Cooperative, No Acute Distress Cardiovascular: Regular Rate, Normal S1, Normal S2, No Murmurs Lungs: Clear to Auscultation Abdomen: Normal Bowel Sounds, Soft, No Tenderness, No Hepatospenomegaly Neurological: Normal Speech, Strength at 5/5 X4 Ext, Normal Tone, Sensation Intact Current Medications: Current Medications Sig/Tyson Start time Last Medication Dose Route Stop Time Status Admin Acetaminophen 650 MG Q6P PRN 01/16 2315 AC PO Aspirin 81 MG DAILY 01/17 09 AC 01/17 PO 0844 Atorvastatin Calcium 10 MG DAILY 01/17 09 AC 01/17 PO 0844 Ceftriaxone Sodium 1,000 MG Q24H 01/17 0100 DC 01/17 IV 0143 Ciprofloxacin 400 MG Q12 01/17 0030 DC Dextrose/Water 200 ML IV Enoxaparin Sodium 40 MG DAILY 01/17 09 AC SC Famotidine 20 MG BID 01/16 2144 AC 01/17 PO 0846 Lisinopril 10 MG DAILY 01/17 0900 AC 01/17 PO 0844 Lorazepam 0.5 MG Q12P PRN 01/16 2145 AC 01/17 PO 01/23 2144 0845 Metronidazole 500 MG Q8H 01/17 0030 DC 01/17 N/A 1 UNIT IV 0843 Psyllium Hydrophilic 1 PAC DAILY 01/17 0916 AC Mucilloid PO Sodium Chloride 1,000 ML .Q10H 01/16 2315 DC 01/16 IV 01/17 1131 2346 Last 24 Hrs of Lab/Zaheer Results Last 24 Hrs of Labs/Mics: Laboratory Tests 01/17/18 1123: Lactic Acid Cancelled 01/17/18 0621: Lactic Acid 2.7 H, ESR Westergren 10 01/17/18 0621: Anion Gap 11, Estimated GFR > 60, BUN/Creatinine Ratio 16.3, C-Reactive Prot, Quant 7.5 H, CBC w Diff NO MAN DIFF REQ, RBC 4.32 L, MCV 92.0, MCH 30.7, MCHC 33.4, RDW 14.3, MPV 8.2, Gran % 84.0 H, Lymphocytes % 8.1 L, Monocytes % 6.3, Eosinophils % 1.4, Basophils % 0.2, Absolute Granulocytes 6.4, Absolute Lymphocytes 0.6 L, Absolute Monocytes 0.5, Absolute Eosinophils 0.1, Absolute Basophils 0 01/16/18 1737: Urine Opiates Screen < 100, Methadone Screen < 40, Barbiturate Screen < 60, Ur Phencyclidine Scrn < 6.00, Amphetamines Screen < 100, U Benzodiazepines Scrn < 85, Urine Cocaine Screen < 50, Urine Cannabis Screen < 5.00, Urine Color YEL, Urine Clarity HAZY H, Urine pH 7.5, Ur Specific [place] 1.010, Urine Protein NEG, Urine Ketones NEG, Urine Nitrite NEG, Urine Bilirubin NEG, Urine Urobilinogen 0.2, Ur Leukocyte Esterase NEG, Ur Microscopic SEDIMENT EXAMINED, Micro UA Comment NEGATIVE MICROSCOPIC, Urine Hemoglobin SMALL H, Urine Glucose NEG 01/16/18 1545: Anion Gap 10, Estimated GFR > 60, BUN/Creatinine Ratio 15.7, Glucose 114 H, Calcium 8.4, Total Bilirubin 0.8, AST 45, ALT 50, Alkaline Phosphatase 49, Creatine Kinase 218 H, Total Protein 6.1 L, Albumin 3.5, Globulin 2.6, Albumin /Globulin Ratio 1.3, CBC w Diff NO MAN DIFF REQ, RBC 4.32 L, MCV 92.2, MCH 31.0 , MCHC 33.6, RDW 14.2, MPV 7.6, Gran % 92.1 H, Lymphocytes % 2.6 L, Monocytes % 5.2, Eosinophils % 0, Basophils % 0.1, Absolute Granulocytes 12.1 H, Absolute Lymphocytes 0.3 L, Absolute Monocytes 0.7 H, Absolute Eosinophils 0, Absolute Basophils 0 Microbiology 01/17 515 URINE ROUT: Urine Culture - RECD 01/16 1745 BLOOD: Blood Culture - RES 01/17 1740 BLOOD: Blood Culture - RES Assessment/Plan Assessment: 72-year-old gentleman with past medical history of hypertension, GERD, diverticulosis, chronic back pain, osteoarthritis, anxiety came to [facility] with complaints of 1 episode of fever with chills and abdominal pain. Assessment and plan 1. Abdominal pain with fever Patient admitted with fever MAXIMUM TEMPERATURE is 101.4 and and left lower quadrant pain treated with 1 dose of ceftriaxone, ciprofloxacin, Flagyl. Since the patient didn't have any loose stools with blood this is unlikely diverticulitis and hence we will stop antibiotics. We will follow him off antibiotics. Patient requested for fiber and will start him on Metamucil. Advised high fiber diet. 2. Patient was scheduled for echocardiogram by her primary care physician for questionable TIA a month ago. We will order echocardiogram today and touch base with planning technician if that can be done this visit. Code-full code DVT prophylaxis-Lovenox Problem List: 1. Fever Pain Ratin Pain Location: none Pain Goal: Remain pain free Pain Plan: tylenol Tomorrow's Labs & Rationales: cbc,bep
[2018-01-17 08:26] LABS: ABSOLUTE BASOPHIL COUNT 0 /CUMM (0.0-0.2); ABSOLUTE EOSINOPHIL COUNT 0.1 /CUMM (0.0-0.7); ABSOLUTE GRANULOCYTE CT 6.4 /CUMM (1.4-6.5); ABSOLUTE LYMPH COUNT 0.6 /CUMM (1.2-3.4); ABSOLUTE MONOCYTE COUNT 0.5 /CUMM (0.10-0.60); BASOPHIL % 0.2 % (0.0-2.0); EOSINOPHIL % 1.4 % (0-5); HEMATOCRIT 39.7 % (42-52); MEAN CORPUSCULAR HGB 30.7 PG (27.0-31.0); MEAN CORPUSCULAR HGB CONC 33.4 G/DL (33.0-37.0); MEAN PLATELET VOLUME 8.2 FL (7.4-10.4); PLATELET COUNT 174 /CUMM (130-400); RBC DISTRIBUTION WIDTH 14.3 % (11.5-14.5); RED BLOOD CELL CT 4.32 /CUMM (4.70-6.10); WHITE BLOOD CELL COUNT 7.6 /CUMM (4.8-10.8)
--- NOTE | 2018-01-17 10:38 | PN- Att Addend ---
Attending Addendum Attending Brief Note Patient seen and examined, he is afebrile this morning. He denies any complaints in terms of any abdominal pain, nausea, vomiting, diarrhea, cough, shortness of breath. No particular source of infection could be identified on my intervieweing with the patient. He did mention that a few months ago he saw a couple of bug bites and then to his doctor for the Lyme testing and it was negative. There is no evidence of rash. Vital Signs Date Time Temp Pulse Resp B/P B/P Pulse O2 O2 Flow FiO2 Mean Ox Delivery Rate 01/17 0844 91 132/80 01/17 0626 97.5 62 20 136/78 98 Room Air 01/16 2243 98.6 72 20 152/80 96 Room Air 01/16 2049 98.2 66 16 118/62 97 Room Air 01/16 1723 Room Air 01/16 1723 98.5 69 16 156/73 99 Room Air 01/16 1404 98.9 74 20 122/61 96 Room Air 01/16 1326 101.4 01/16 1155 101.4 109 18 109/61 94 Room Air on exam; aox3, nad. cv; s1,s2, rrr resp; clear abed; soft, nt, bs+ ext; no edema skin: no rash. Laboratory Tests 01/17 01/17 0621 0621 Chemistry Sodium (137 - 145 mmol/L) 138 Potassium (3.5 - 5.1 mmol/L) 4.0 Chloride (98 - 107 mmol/L) 100 Carbon Dioxide (22 - 30 mmol/L) 27 Anion Gap (5 - 16) 11 BUN (9 - 20 mg/dL) 13 Creatinine (0.7 - 1.2 mg/dL) 0.8 Estimated GFR (>60 ml/min) > 60 BUN/Creatinine Ratio (7 - 25 %) 16.3 Lactic Acid (0.7 - 2.1 mmol/L) 2.7 H C-Reactive Prot, Quant (<1.0 mg/dL) 7.5 H Hematology CBC w Diff NO MAN DIFF REQ WBC (4.8 - 10.8 /CUMM) 7.6 RBC (4.70 - 6.10 /CUMM) 4.32 L Hgb (14.0 - 18.0 G/DL) 13.3 L Hct (42 - 52 %) 39.7 L MCV (80.0 - 94.0 FL) 92.0 MCH (27.0 - 31.0 PG) 30.7 MCHC (33.0 - 37.0 G/DL) 33.4 RDW (11.5 - 14.5 %) 14.3 Plt Count (130 - 400 /CUMM) 174 MPV (7.4 - 10.4 FL) 8.2 Gran % (42.2 - 75.2 %) 84.0 H Lymphocytes % (20.5 - 51.1 %) 8.1 L Monocytes % (1.7 - 9.3 %) 6.3 Eosinophils % (0 - 5 %) 1.4 Basophils % (0.0 - 2.0 %) 0.2 Absolute Granulocytes (1.4 - 6.5 /CUMM) 6.4 Absolute Lymphocytes (1.2 - 3.4 /CUMM) 0.6 L Absolute Monocytes (0.10 - 0.60 /CUMM) 0.5 Absolute Eosinophils (0.0 - 0.7 /CUMM) 0.1 Absolute Basophils (0.0 - 0.2 /CUMM) 0 ESR Westergren (0 - 10 MM) 10 01/16 1737 Toxicology Urine Opiates Screen (>2000 NG/ML) < 100 Methadone Screen (>300 NG/ML) < 40 Barbiturate Screen (>200 NG/ML) < 60 Ur Phencyclidine Scrn (>25 NG/ML) < 6.00 Amphetamines Screen (>1000 NG/ML) < 100 U Benzodiazepines Scrn (>200 NG/ML) < 85 Urine Cocaine Screen (>300 NG/ML) < 50 Urine Cannabis Screen (>50 NG/ML) < 5.00 Urines Urine Color (YEL,AMB,STR) YEL Urine Clarity (CLEAR) HAZY H Urine pH (5.0 - 8.0) 7.5 Ur Specific [place] (1.001 - 1.035) 1.010 Urine Protein (NEG,<30 MG/DL) NEG Urine Ketones (NEG) NEG Urine Nitrite (NEG) NEG Urine Bilirubin (NEG) NEG Urine Urobilinogen (0.1 - 1.0 EU/dl) 0.2 Ur Leukocyte Esterase (NEG) NEG Ur Microscopic SEDIMENT EXAMINED Micro UA Comment NEGATIVE MICROSCOPIC Urine Hemoglobin (NEG) SMALL H Urine Glucose (N MG/DL) NEG 01/16 1545 Chemistry Sodium (137 - 145 mmol/L) 136 L Potassium (3.5 - 5.1 mmol/L) 4.4 Chloride (98 - 107 mmol/L) 96 L Carbon Dioxide (22 - 30 mmol/L) 30 Anion Gap (5 - 16) 10 BUN (9 - 20 mg/dL) 11 Creatinine (0.7 - 1.2 mg/dL) 0.7 Estimated GFR (>60 ml/min) > 60 BUN/Creatinine Ratio (7 - 25 %) 15.7 Glucose (65 - 99 mg/dL) 114 H Calcium (8.4 - 10.2 mg/dL) 8.4 Total Bilirubin (0.2 - 1.3 mg/dL) 0.8 AST (17 - 59 U/L) 45 ALT (21 - 72 U/L) 50 Alkaline Phosphatase (< 127 U/L) 49 Creatine Kinase (55 - 170 U/L) 218 H Total Protein (6.3 - 8.2 g/dL) 6.1 L Albumin (3.5 - 5.0 g/dL) 3.5 Globulin (1.9 - 4.2 gm/dL) 2.6 Albumin/Globulin Ratio (1.1 - 2.2 %) 1.3 Hematology CBC w Diff NO MAN DIFF REQ WBC (4.8 - 10.8 /CUMM) 13.2 H RBC (4.70 - 6.10 /CUMM) 4.32 L Hgb (14.0 - 18.0 G/DL) 13.4 L Hct (42 - 52 %) 39.8 L MCV (80.0 - 94.0 FL) 92.2 MCH (27.0 - 31.0 PG) 31.0 MCHC (33.0 - 37.0 G/DL) 33.6 RDW (11.5 - 14.5 %) 14.2 Plt Count (130 - 400 /CUMM) 184 MPV (7.4 - 10.4 FL) 7.6 Gran % (42.2 - 75.2 %) 92.1 H Lymphocytes % (20.5 - 51.1 %) 2.6 L Monocytes % (1.7 - 9.3 %) 5.2 Eosinophils % (0 - 5 %) 0 Basophils % (0.0 - 2.0 %) 0.1 Absolute Granulocytes (1.4 - 6.5 /CUMM) 12.1 H Absolute Lymphocytes (1.2 - 3.4 /CUMM) 0.3 L Absolute Monocytes (0.10 - 0.60 /CUMM) 0.7 H Absolute Eosinophils (0.0 - 0.7 /CUMM) 0 Absolute Basophils (0.0 - 0.2 /CUMM) 0 A/P: 72 y/o M with pmh sig for HTN, GERD, diverticulitis, chronic back pain, osteoarthritis, anxiety admitted with fever, no source clear yet, high lactate levels. Pt also had leukocytosis. He did receive IV antibiotics that included ceftriaxone and Flagyl for possible infection related to GI pathology. His CAT scan is negative and his exam is benign. he has no abd tenderness or sx. He had defervesced and white blood cell count has normalized. At this point do not have a clear source therefore we have stopped antibiotics. Will follow-up on all the cultures. Patient does have slightly high lactate levels, will continue IV hydration and monitor his lactate levels. His diet will be advanced. We'll watch him on antibiotics. Continue the rest of the medications. We have added fiber as per patient's request. DVT px; Lovenox.
[2018-01-17 14:01] VITALS: BP 140/80
--- NOTE | 2018-01-17 15:35 | Patient Discharge Instructions ---
Acute Coronary Syndrome Inclusion Criteria At DC or during hospital stay patient has or had the following: ACS DIAGNOSIS No Discharge Core Measures Meds if any: Prescribed or Continued at Discharge Meds if any: NOT Prescribed or Continued at Discharge Congestive Heart Failure Inclusion Criteria At DC or during hospital stay patient has or had the following: CHF DIAGNOSIS No Discharge Core Measures Meds if any: Prescribed or Continued at Discharge Meds if any: NOT Prescribed or Continued at Discharge Cerebrovascular accident Inclusion Criteria At DC or during hospital stay patient has or had the following: CVA/TIA Diagnosis No Discharge Core Measures Meds if any: Prescribed or Continued at Discharge Meds if any: NOT Prescribed or Continued at Discharge Venous thromboembolism Inclusion Criteria VTE Diagnosis No VTE Type NONE VTE Confirmed by (Test) NONE Discharge Core Measures - Per Current guidelines, there needs to be overlap - treatment for the first 5 days of Warfarin therapy. - If discharged on Warfarin prior to 5 days of - overlap therapy, the patient will need to be - assessed for post discharge needs including - *Post discharge parental anticoagulation - *Warfarin and/or parental anticoagulation education - *Follow up date to check INR post discharge At least 5 days overlap therapy as Inpatient No Meds if any: Prescribed or Continued at Discharge Note: Overlap Therapy is Warfarin and Anticoagulant Meds if any: NOT Prescribed or Continued at Discharge
[2018-01-17 21:35] VITALS: BP 130/72
[2018-01-18 06:39] VITALS: BP 140/80
--- NOTE | 2018-01-18 07:08 | PN- Housestaff ---
Subjective Follow-up For: Fever with shortness of breath Subjective: Patient seen and examined at bedside. No overnight events. No complaints. Patient is eager to go home. Review of Systems Constitutional: Reports: no symptoms, see HPI. Objective Last 24 Hrs of Vital Signs/I&O Vital Signs Date Time Temp Pulse Resp B/P B/P Pulse O2 O2 Flow FiO2 Mean Ox Delivery Rate 01/18 0836 65 18 140/80 01/18 0639 97.9 65 18 140/80 99 Room Air 01/17 2135 98.2 67 18 130/72 97 01/17 1401 98.3 68 20 140/80 98 Room Air Intake & Output 01/18 1600 01/18 0800 01/18 0000 Intake Total 940 1400 Output Total Balance 940 1400 Intake, IV 600 600 Intake, Oral 340 800 Number 1 Bowel Movements Patient 149 lb Weight Physical Exam General Appearance: Alert, Oriented X3, Cooperative, No Acute Distress Cardiovascular: Regular Rate, Normal S1, Normal S2, No Murmurs Lungs: Clear to Auscultation, Normal Air Movement Abdomen: Normal Bowel Sounds, Soft, No Tenderness, No Hepatospenomegaly Neurological: Normal Speech, Strength at 5/5 X4 Ext, Normal Tone, Sensation Intact Extremities: No Cyanosis, No Edema, Normal Pulses Current Medications: Current Medications Sig/Tyson Start time Last Medication Dose Route Stop Time Status Admin Acetaminophen 650 MG Q6P PRN 01/16 2315 AC PO Aspirin 81 MG DAILY 01/17 09 AC 01/18 PO 0836 Atorvastatin Calcium 10 MG DAILY 01/17 09 AC 01/18 PO 0836 Enoxaparin Sodium 40 MG DAILY 01/17 09 SC Famotidine 20 MG BID 01/17 2144 AC 01/18 PO 0836 Lisinopril 10 MG DAILY 01/17 09 AC 01/18 PO 0836 Lorazepam 0.5 MG Q12P PRN 01/16 2145 AC 01/18 PO 01/23 214 0836 Patient Medication 1 ED ONE ONE 01/17 1630 DC Teaching ED 01/17 1631 Psyllium Hydrophilic 1 PAC DAILY 01/17 09 01/18 Mucilloid PO 0836 Sodium Chloride 1,000 ML Q13H 01/17 1345 DC 01/18 IV 0402 Sodium Chloride 1,000 ML .Q10H 01/16 2315 DC 01/16 IV 01/17 1131 2346 Last 24 Hrs of Lab/Zaheer Results Last 24 Hrs of Labs/Mics: Laboratory Tests 01/18/18 0610: Anion Gap 7, Estimated GFR > 60, BUN/Creatinine Ratio 11.3, CBC w Diff NO MAN DIFF REQ, RBC 4.46 L, MCV 91.9, MCH 30.6, MCHC 33.3, RDW 14.2, MPV 8.4, Gran % 70.6, Lymphocytes % 14.0 L, Monocytes % 12.9 H, Eosinophils % 2.3, Basophils % 0.2, Absolute Granulocytes 3.9, Absolute Lymphocytes 0.8 L, Absolute Monocytes 0.7 H, Absolute Eosinophils 0.1, Absolute Basophils 0 01/17/18 1325: Lactic Acid 1.0 01/17/18 1123: Lactic Acid Cancelled Assessment/Plan Assessment: 72-year-old gentleman with past medical history of hypertension, GERD, diverticulosis, chronic back pain, osteoarthritis, anxiety came to [facility] with complaints of 1 episode of fever with chills and abdominal pain. Assessment and plan 1. Abdominal pain with fever Patient admitted with fever MAXIMUM TEMPERATURE is 101.4 and and left lower quadrant pain treated with 1 dose of ceftriaxone, ciprofloxacin, Flagyl. Since the patient didn't have any loose stools with blood this is unlikely diverticulitis and hence antibiotics were stopped. Patient had 2 formed bowel movements. Advised high fiber diet. 2. Patient was scheduled for echocardiogram by her primary care physician for questionable TIA a month ago. Patient would like to get the echocardiogram done as outpatient. . Code-full code DVT prophylaxis-Lovenox Plan-patient will be discharged home to follow up with his primary care and databases software consultant within 1-2 weeks of discharge. Problem List: 1. SIRS (systemic inflammatory response syndrome) Pain Ratin Pain Location: none Pain Goal: Remain pain free Pain Plan: tylenol Tomorrow's Labs & Rationales: none
[2018-01-18 08:36] VITALS: BP 140/80
[2018-01-18 09:39] LABS: ABSOLUTE BASOPHIL COUNT 0 /CUMM (0.0-0.2); ABSOLUTE EOSINOPHIL COUNT 0.1 /CUMM (0.0-0.7); ABSOLUTE GRANULOCYTE CT 3.9 /CUMM (1.4-6.5); ABSOLUTE LYMPH COUNT 0.8 /CUMM (1.2-3.4); ABSOLUTE MONOCYTE COUNT 0.7 /CUMM (0.10-0.60); BASOPHIL % 0.2 % (0.0-2.0); EOSINOPHIL % 2.3 % (0-5); GRANULOCYTE % 70.6 % (42.2-75.2); HEMATOCRIT 40.9 % (42-52); MEAN CORPUSCULAR HGB 30.6 PG (27.0-31.0); MEAN CORPUSCULAR HGB CONC 33.3 G/DL (33.0-37.0); MEAN CORPUSCULAR VOLUME 91.9 FL (80.0-94.0); MEAN PLATELET VOLUME 8.4 FL (7.4-10.4); PLATELET COUNT 193 /CUMM (130-400); RBC DISTRIBUTION WIDTH 14.2 % (11.5-14.5); RED BLOOD CELL CT 4.46 /CUMM (4.70-6.10); WHITE BLOOD CELL COUNT 5.5 /CUMM (4.8-10.8)
--- NOTE | 2018-01-18 10:49 | PN- Att Addend ---
Attending Addendum Attending Brief Note Patient seen and examined, feels well. Offers no complaints. He does complain of off and on pain in his inguinal hernia surgery. He said that it is only mild and only calms when he pushes or lifts heavy weights. He denies any abdominal pain, any diarrhea. There is no further fever spikes. His leukocytosis has resolved. We discontinued his antibiotics yesterday and watch him off of antibiotics. He remains afebrile and all of his cultures remain negative. At this point he is medically stable for discharge home today on no antibiotics. Patient encouraged to follow-up with his primary care doctor as well as make an appointment with his surgeon Kee Taveras MD. For his inguinal hernia. We also tried to get echocardiogram done for this patient but unfortunately there isavailable so it could not be done. This was originally scheduled as an outpatient and can still be done as an outpatient. Patient otherwise has no shortness of breath. This was done as a workup for TIA. Patient to get echo scheduled through his primary care doctor. He will be continued on his home medications.
--- NOTE | 2018-01-18 13:08 | Discharge Summary ---
Visit Information Visit Dates Admission Date: 01/16/18 Discharge Date: 01/18/18 Hospital Course Course Attending Physician: Amanda Ly MD Primary Care Physician: Norbert Ortiz MD Hospital Course: Patient is 72 Y M with PMH of HTN, GERD, diverticulitis, chronic back pain, osteoarthritis, anxiety presented to the ED with fever, chills and abdominal discomfort. Patient reported that he had a fever of 102 on the day of admission, and, he also had shortness of breathing with exertion associated with shaking. He called EMS and was transferred to hospital. He also noticed a small amount of blood in his stool 2 days ago, however Hemoccult today was negative. He also reported mild abdominal soreness, with pain in LLQ with palpation. He had history of diverticulitis (several years ago) and the most recent episode was 4- 5 months ago when he was administered Flagyl and ciprofloxacin by PCP (this was associated by 12 pound weight loss due to poor by mouth intake. He denied any recent infection, chest pain, change in bowel moment, change in urine color, no headache, no infection in oral cavity. He had an episode of vision change one months ago which lasted for 15 seconds, he was referred to applications project manager by his PCP without significant finding and was planned to do an echocardiogram today to rule out any etiology of stroke. He follows Dr Cespedes, last visit was one months ago his last colonoscopy was 6 years ago. He also follows Dr. Graica for osteoarthritis. Patient also visited ED in December 2017 for high-temperature and was discharged on Tylenol after negative workup. In his baseline he is independent of ADL was and lives with . He denies drinking alcohol, he stopped smoking 13 years ago. Hospital course: Patient was admitted with abdominal pain and fever with a MAXIMUM TEMPERATURE of 101.4. In the ED patient received 1 dose of ceftriaxone/ciprofloxacin/Flagyl in view of suspected diverticulitis. Patient denied loose stools during the hospital course, all of his cultures remain negative and hence his antibiotics were stopped. Patient is on a high-fiber diet. We continued his home medication and advised to follow-up with his cane weigher helper Dr. Johnny Cespedes as outpatient within 1-2 weeks of discharge. Patient was also scheduled for echocardiogram by her primary care physician for TIA workup. Patient advised to get an echocardiogram done as outpatient. During the hospital course patient also complained of pain at the operative site of left inguinal hernia. Patient advised to follow-up with this surgeon as outpatient. Allergies: Coded Allergies: Penicillins (Severe, LIP SWELLING, HIVES 11/30/17) sulfamethoxazole (From Bactrim) (Severe, LIP SWELLING 11/30/17) trimethoprim (From Bactrim) (Severe, LIP SWELLING 11/30/17) venom-honey bee (Intermediate, REDNESS, SWELLING TO SITE 11/30/17) Pertinent Lab Results: Chest x-ray January 16 IMPRESSION: No active disease in the chest. CT pelvis and abdomen January 16 Marked diverticulosis of the sigmoid and left colon with diverticula throughout the colon. There is mild bowel wall thickening of the sigmoid colon but this is chronic similar to prior studies related to the marked diverticulosis. No pericolonic edema to suggest an acute abnormality. Disposition Summary Disposition Principal Diagnosis: Suspected diverticulitis Additional Diagnosis: none Discharge Disposition: home or self care Discharge Instructions General Discharge Information Code Status: Full Code Patient's Diet: High-fiber diet Patient's Activity: As tolerated Follow-Up Instructions/Appts: Please follow-up with primary care physician/cane weigher helper/surgeon within 1 -2 weeks of discharge. Medications at Discharge Discharge Medications: Continue taking these medications: Lisinopril (Lisinopril) 10 MG TABLET 1 Tablet ORAL DAILY Qty = 90 Comments: Last Taken: 01/18/18 Time: 830 AM Ranitidine (Ranitidine HCl) 150 MG TABLET 1 Tablet ORAL TWICE DAILY Qty = 180 Comments: Last Taken: 01/18/18 Time: 830 AM RECEIVED PEPCID A SUBSTITUTE Lorazepam (Lorazepam) 0.5 MG TABLET 1 Tablet ORAL 2 x Daily as needed as needed for ANXIETY Qty = 60 Comments: Last Taken: 01/18/18 Time: 830 AM Acetaminophen (Pain Reliever) 500 MG CAPSULE 2 Capsule ORAL as needed for PAIN Comments: Last Taken: 01/16/18 Time: 130 PM Aspirin (Aspirin*) 81 MG TAB.CHEW 1 Tablet ORAL DAILY Comments: Last Taken: 01/18/18 Time: 830 AM Atorvastatin Calcium (Atorvastatin Calcium) 10 MG TABLET 1 Tablet ORAL DAILY Qty = 30 Comments: Last Taken: 01/18/18 Time: 830 AM Hydrocodone/Acetaminophen (Hydrocodon-Acetaminophen 5-325) 5 MG-325 MG TABLET 1 Tablet ORAL DAILY NEEDED as needed for pain Days = 30 Comments: NOT GIVEN Copies To: Angel BOWEN,Norbert Finn
== END 2018-01-18 10:45 | DRG 392 ==
LOC: ERH 11:10 → 2NA 19:20 → ERHI 19:20 → ENRESERV 20:36 → ENTRNSPT 21:46 → EDTRNSPTSTS 21:55 → EDTRNSPT 21:55 → 2NA 22:07 → CMPTRNSPT 22:16 → 2NA 01-17 07:14 → ENPENDDIS 01-18 10:01 → 2NA 01-18 10:45
PROVIDERS: Internal Medicine; Student in an Organized Health Care Education/Training Program
DX: K57.32 Diverticulitis of large intestine without perforation or abscess without bleeding (principal); F41.9 Anxiety disorder, unspecified; I10 Essential (primary) hypertension; K21.9 Gastro-esophageal reflux disease without esophagitis; M54.9 Dorsalgia, unspecified; M19.90 Unspecified osteoarthritis, unspecified site; Z88.1 Allergy status to other antibiotic agents; Z88.0 Allergy status to penicillin; Z88.2 Allergy status to sulfonamides
CPT/HCPCS: 2NASP; 36415; 36592; 71046; 74176; 80307; 81001; 82436; 87040; 87086; 93005; 93010; 99291; J0696; J1650; J3490